=== PATIENT | male | born 1995 | race Caucasian/White ===

== ENCOUNTER 2025-05-25 11:28 | Emergency (ER) | payer SELFPAY ==
[~2025-05-25] VITALS: Ht 185.4 cm; Wt 86.2 kg
[2025-05-25 11:35] VITALS: BP 147/87; PULSE 110; RESP 18; TEMP 98.7; O2SAT 98
[2025-05-25 11:49] VITALS: BP 139/79; PULSE 100; RESP 18; TEMP 98.7; O2SAT 98
[2025-05-25 12:42] LABS: INFLUENZA VIRUS A ANTIGEN NEGATIVE (NEG); INFLUENZA VIRUS B ANTIGEN NEGATIVE (NEG)
[2025-05-25 13:07] VITALS: BP 138/87; PULSE 102; RESP 18; O2SAT 100
== END 2025-05-25 13:09 | disposition home or self-care (01) ==
LOC: ER 11:28
DX: J06.9 Acute upper respiratory infection, unspecified (principal); B97.89 Other viral agents as the cause of diseases classified elsewhere; Z20.822 Contact with and (suspected) exposure to COVID-19
CPT/HCPCS: 87070; 87426; 87804; 87880; 99283